=== PATIENT | female | born 1955 | race Hispanic/Latino ===

== ENCOUNTER 2019-09-23 12:00 | Observation (INO) | payer BC ==
[~2019-09-23] VITALS: Ht 157.5 cm; Wt 81.6 kg
[2019-09-23 09:15] VITALS: BP 168/83
--- NOTE | 2019-09-23 11:04 | NUR ---
DIET RESTRICTIONS Lactose intolerate Gluten intolerate Addendum: 09/23/19 at 1108 by BACILIO TORRES RN RN Amended: Links added.
--- NOTE | 2019-09-23 11:40 | NUR ---
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
[~2019-09-23 12:00] MED LIST: DICY10CA13 PO; LANS30CA55 PO; LOSA50TA64 PO; MONT10TA21 PO; PREG75 PO; TRAM-355 PO
[2019-09-26] VITALS (25 sets, daily range): BP systolic 114–146; BP diastolic 57–80
[2019-09-26] MEDS ORDERED: CEFAZOLIN SODIUM 1 GM VIAL ONE ×2 (06:17→06:52)
[2019-09-26] MEDS ORDERED: LACTATED RINGERS 1000ML 1,000 ML IV ONE (06:17)
[2019-09-26] MEDS ORDERED: CLINDAMYCIN 900 MG/D5% WATER 50 ML IV ONE (06:26)
--- NOTE | 2019-09-26 06:40 | NUR ---
SX TEDS/SCD APPLIED TO BLE
[2019-09-26] MEDS ORDERED: DURAMORPH PF1 MG/ML 10ML AMP IV ONE (06:52)
[2019-09-26] MEDS ORDERED: BUPIVACAINE/EPI/PF 0.5% 30ML VIAL IJ ONE (06:52)
[2019-09-26] MEDS ORDERED: THROMBIN-JMI 20000 UNIT KIT TP ONE (06:52)
[2019-09-26] MEDS ORDERED: PROPOFOL 10 MG/ML 20ML VIAL IV ONE (07:04)
[2019-09-26] MEDS ORDERED: SUCCINYLCHOLINE 200MG/10ML SYR ONE (07:04)
[2019-09-26] MEDS ORDERED: LIDOCAINE PF 2% 5ML ABBOJECT ONE (07:04)
[2019-09-26] MEDS ORDERED: ROCURONIUM 10MG/1ML SYR 10 MG/ML ML ONE (07:04)
[2019-09-26] MEDS ORDERED: FENTANYL CITRATE PF 50 MCG/1 ML 2ML VIAL ONE (07:05)
[2019-09-26] MEDS ORDERED: MIDAZOLAM HCL 1 MG/ML 2ML VIAL ONE (07:05)
[2019-09-26] MEDS ORDERED: CEFAZOLIN SODIUM 1 GM VIAL IVP ONE (08:00)
[2019-09-26] MEDS ORDERED: PHENYLEPHRINE HCL 10 MG/ML 1ML VIAL IV ONE (08:37)
[2019-09-26] MEDS ORDERED: SODIUM CHLORIDE 0.9% 10 ML VIAL ONE (08:37)
[2019-09-26] MEDS ORDERED: NEOSTIGMINE 5MG/5ML SYR IV ONE (09:44)
[2019-09-26] MEDS ORDERED: GLYCOPYRROLATE 0.2 MG/ML 5 ML VIAL ONE (09:44)
[2019-09-26] MEDS ORDERED: ESMOLOL HCL 10 MG/ML 10 ML VIAL ONE ×2 (09:58→10:05)
[2019-09-26] MEDS ORDERED: MEPERIDINE-PF 25 MG/ML SYG ONE (09:59)
[2019-09-26] MEDS ORDERED: TRAMADOL /APAP 37.5MG/325MG TAB PO PRN (10:00)
[2019-09-26] MEDS ORDERED: SODIUM CHLORIDE 0.9% 10 ML VIAL IVP PRN (10:00)
[2019-09-26] MEDS: DEXAMETHASONE SOD PHOSPHATE 4 MG/ML 1ML VIAL IVP SCH ×3 (10:00→20:49)
[2019-09-26] MEDS ORDERED: DICYCLOMINE HCL 20 MG TAB PO PRN (10:00)
[2019-09-26] MEDS ORDERED: MORPHINE SULFATE 2 MG/ML 1ML SYG IVP PRN (10:00)
[2019-09-26] MEDS ORDERED: PROMETHAZINE HCL 25 MG/ML 1ML AMPULE IM PRN (10:00)
[2019-09-26] MEDS ORDERED: CLINDAMYCIN 900 MG/D5% WATER 50 ML IV SCH ×2 (10:00→14:00)
[2019-09-26] MEDS ORDERED: HYDROCODONE/ACETAMINOPHEN 5/325 MG TAB PO PRN (10:00)
[2019-09-26] MEDS: LACTATED RINGERS 1000ML 1,000 ML IV SCH (11:26)
[2019-09-26] MEDS ORDERED: ONDANSETRON HCL 4 MG/2 ML VIAL IVP PRN (14:30)
[2019-09-26] MEDS ORDERED: MONTELUKAST SODIUM 10 MG TAB PO SCH (21:00)
[2019-09-26] MEDS ORDERED: LANSOPRAZOLE 15 MG SOLU TAB PO SCH (21:00)
[2019-09-26] MEDS ORDERED: PREGABALIN 75 MG CAPSULE PO SCH ×3 (21:00)
--- NOTE | 2019-09-26 21:30 | NUR ---
PATIENT AWAKE AND ALERT. NURSE ATTEMPTED TO WALK PATIENT AT THIS TIME, PATIENT MEDICATED FOR COMPLAINTS OF NAUSEA. EMESIS NOTED. ASSISTED PATIENT BACK TO BED. RESP EVEN AND UNLABORED. NO SOB NOTED. VITALS STABLE. AFEBRILE. TOLERATING IVF WELL. DRESSING TO MID LOWER BACK DRY AND INTACT. NO ACTIVE BLEEDING NOTED. SCDS ON. GEE PATENT AND DRAINING CLEAR YELLOW URINE TO BSD. CALL LIGHT WITHIN REACH. WILL CONTINUE TO BE OBSERVED. Addendum: 09/27/19 at 0124 by PORFIRIO OSEI RN RN Amended: Links added.
--- NOTE | 2019-09-27 | NUR ---
ROUNDS PATIENT RESTING IN BED WITH OU CLOSED. EASILY AROUSED. NO COMPLAINTS OF PAIN AND OR NAUSEA. PHENERGAN EFFECTIVE AT THIS TIME. RESP EVEN AND UNLABORED. NO SOB NOTED. ON ROOM AIR. TOLERATING IVF WELL. VITALS STABLE. AFEBRILE. NO NAUSEA OR VOMITING NOTED. NO SIGNS OF DISTRESS NOTED. CALL LIGHT WITHIN REACH. WILL CONTINUE TO BE OBSERVED. Addendum: 09/27/19 at 0526 by PORFIRIO OSEI RN RN Amended: Links added.
[2019-09-27] MEDS: LACTATED RINGERS 1000ML 1,000 ML IV SCH (01:20)
[2019-09-27 03:31] VITALS: BP 102/51
[2019-09-27] MEDS: DEXAMETHASONE SOD PHOSPHATE 4 MG/ML 1ML VIAL IVP SCH (04:58)
--- NOTE | 2019-09-27 05:27 | NUR ---
PATIENT AWAKE AND ALERT IN BED AT THIS TIME. NO COMPLAINTS OF PAIN. GEE CATHETER DISCONTINUED PER MD ORDERS. PENDING TO VOID. PATIENT AWARE. WILL CONTINUE TO BE OBSERVED. CALL LIGHT WITHIN REACH. Addendum: 09/27/19 at 0528 by PORFIRIO OSEI RN RN Amended: Links added.
[2019-09-27] MEDS ORDERED: ACETAMINOPHEN EXTRA STRENGTH 500 MG TABLET PO SCH (07:30)
[2019-09-27] MEDS ORDERED: ACETAMINOPHEN EXTRA STRENGTH 500 MG TABLET ONE (07:35)
[2019-09-27 08:00] VITALS: BP 112/61
--- NOTE | 2019-09-27 08:00 | NUR ---
DRESSING CHANGED TO PT'S LOWER BACK; PT HAS A WELL APPROX. INC. LINE WITH SAMIA IN PLACE, NO FRESH DRAINAGE AND SCANT OLD BLOODY DRAINAGE ON DRESSING; NO REDNESS OR EDEMA NOTED; AREA CLEANSED WITH BETADINE THEN 3X4 GAUZE AND MEDIPORE TAPE APPLIED; I HAVE DISCUSSED WITH PATIENT SIGNS AND SYMPTOMS OF INFECTION TO WATCH FOR AND REPORT AND ALSO INC. LINE CARE, TO LEAVE THE CURRENT DRESSING ON TILL F/U UNLESS SOILED OR DIRTY; PT STATED UNDERSTANDING OF ALL THE INSTRUCTIONS AND TOLERATED PROCEDURE WELL; IV ACCESS ALSO REMOVED.
[2019-09-27] MEDS ORDERED: LOSARTAN 50 MG TABLET PO SCH (09:00)
--- NOTE | 2019-09-27 10:48 | NUR ---
PT STATED UNDERSTANDING OF ALL D/C INSTRUCTIONS; SHE HAD BEEN DUE TO VOID AND IS GOING TO THE RESTROOM NOW TO VOID; WILL ASSIST HER DOWNSTAIRS VIA WHEEL CHAIR ONCE SHE VOIDS; HERE TO DRIVE HER HOME.
--- NOTE | 2019-09-27 10:59 | NUR ---
PT VOIDED 600CC URINE IN THE BATHROOM OK TO BE DISCHARGED; NO C/O PAIN AT THIS TIME.
== END 2019-09-27 11:10 | disposition home or self-care (01) ==
LOC: DAHIP 09-26 05:41 → 4AH 09-26 10:40 → EDSTATUS 09-26 12:00
PROVIDERS: ADMIT Neurological Surgery; ATTEND Neurological Surgery
DX: M51.27 Other intervertebral disc displacement, lumbosacral region (principal); Z90.710 Acquired absence of both cervix and uterus; Z88.1 Allergy status to other antibiotic agents
CPT/HCPCS: 63030; 72020; 96365; 96372; 96375; 96376 ×2; A4215; A4221; A4222; A4223; A4344; A4600; A4649 ×4; A4663; A6260; G0378 ×21; J0330; J0690; J1100 ×3; J2001; J2175; J2250; J2274; J2370; J2405; J2550; J2704; J2710; J3010; J3490 ×6; J7030; J7120 ×4